=== PATIENT | male | born 1935 | race Caucasian/White ===

== ENCOUNTER 2020-04-04 10:10 | Emergency (ER) | payer MEDICARE, MEDICAID ==
[~2020-04-04] VITALS: Wt 59.5 kg
[~2020-04-04 10:10] MED LIST: UNABLE
[2020-04-04] MEDS ORDERED: DULOXETINE60 MG PO (10:20)
[2020-04-04] MEDS ORDERED: ALPRAZOLAM1 MG PO (10:20)
[2020-04-04 11:13] LABS: HEMOGLOBIN 14.6 g/dL (13.5-18.0); MEAN CELL VOLUME 97 fl (78-100); MEAN CORPUSCULAR HEMOGLOBIN 32 pg (27-31); MEAN CORPUSCULAR HGB CONC 33 g/dL (33-37); MEAN PLATELET VOLUME 10.4 fl (7.4-10.4); PLATELET COUNT 177 K/mm3 (130-400); RED BLOOD COUNT 4.56 M/mm3 (4.20-5.60); RED CELL DISTRIBUTION WIDTH 13.8 % (11.5-14.5); WHITE BLOOD COUNT 7.9 K/mm3 (4.8-10.8)
[2020-04-04 11:15] LABS: ALBUMIN 3.4 g/dL (3.4-4.8); POTASSIUM 3.8 mmol/L (3.5-5.1)
[2020-04-04 11:17] LABS: CALCIUM 8.2 mg/dL (8.3-10.5)
[2020-04-04 11:18] LABS: TOTAL PROTEIN 5.9 g/dL (6.2-8.1)
[2020-04-04 11:20] LABS: TOTAL BILIRUBIN 0.3 mg/dL (0.2-1.2)
[2020-04-04 12:06] LABS: LYMPHOCYTE 20 % (20-51); MONOCYTE 11 % (3-10); NEUTROPHILS 68 % (42-75)
[2020-04-04 13:38] VITALS: BP 123/60
== END 2020-04-04 13:22 | disposition short-term general hospital (02) ==
LOC: ED 10:10
PROVIDERS: Nurse Practitioner Primary Care
DX: I21.4 Non-ST elevation (NSTEMI) myocardial infarction (principal); F41.9 Anxiety disorder, unspecified; F32.9 Major depressive disorder, single episode, unspecified; F17.210 Nicotine dependence, cigarettes, uncomplicated
CPT/HCPCS: J1644